=== PATIENT | female | born 1995 | race African-American/Black ===

== ENCOUNTER 2022-02-22 16:19 | Outpatient (RCR) | payer OTHER, SELFPAY ==
[2022-02-06 14:18] VITALS: BP 95/62; PULSE 81
[2022-02-10 07:44] VITALS: BP 99/57; PULSE 91
--- NOTE | 2022-02-10 08:45 | PC.NURSE ---
0814- Spoke with Dr. Norwood , US reviewed. orders for patient to keep NST in office on Tuesday and to come back to hospital next Tuesday for NST, BPP, JULIO and cord dopplers. Appt made for 0700 on Tue02/17/22
[2022-02-17 08:58] VITALS: BP 103/56; PULSE 86
--- NOTE | ~2022-02-22 | US_ITS ---
Corrected Report Order # associated See bolded text 02/18/2022 SLJ This report was recreated on 02/18/2022. Original report was signed by Jarred Alfonso M.D. 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 The interpreting radiologist was not present for the study. COMPARISON: None. FINDINGS: There is a single living fetus in vertex presentation. The placenta is right/anterior. heart rate is 137 beats per minute (bpm). The amniotic fluid index is 7.9 cm which is normal (normal range: 7.3 cm to 23.9 cm). Biophysical profile performed by the technologist: breathing (30 sec sustained breathing in 30 minutes): 2 out of 2 movement (3 gross body movements in 30 minutes): 2 out of 2 tone (one episode of mpojxoo-qngwmzlij-wehbxtu limb movement): 2 out of 2 Amniotic fluid pocket (2 cm): 2 out of 2 Total score: 8 out of 8 Umbilical artery pulsed Doppler demonstrates peak systolic to end-diastolic velocity ratio (S/D ratio) of 2.4 (5th percentile = 1.9, 95th percentile = 3.1). IMPRESSION: 1. Single living fetus in vertex presentation. 2. Biophysical profile 8 out of 8. 3. Normal amniotic fluid index. 4. Normal umbilical artery Doppler ratio. Reviewed, dictated and finalized at location A. CLIMBING INSTRUCTOR MTDD
--- NOTE | ~2022-02-22 | US_ITS ---
EXAMINATION: US OB limited w BPP, US umbilical doppler DATE: 02/10/2022 08:13 INDICATION: Abnormal variations on the nonstress test during third trimester . TECHNIQUE: Real-time pelvic ultrasound was performed. The interpreting radiologist was not present fo r the study. COMPARISON: None. FINDINGS: There is a single living fetus in vertex presentation. The placenta is fundal. heart rate is 1 48 beats per minute (bpm). Normal amniotic fluid index of 7.9 cm (5th%-95%: 7.5-24.4 cm at 37 weeks e stimated gestational age) Biophysical profile performed by the technologist: breathing (30 sec sustained breathing in 30 minutes): 2 out of 2 movement (3 gross body movements in 30 minutes): 2 out of 2 tone (one episode of nqacoks-dqlyntleu-fcrawoj limb movement): 2 out of 2 Amniotic fluid pocket (2 cm): 2 out of 2 Total score: 8 out of 8 The umbilical artery demonstrates a peak systolic and diastolic velocity ratio of 1.5-2.0 at the fetu s, 1.7-1.9 in the mid cord and 1.7 near the placenta (5th%-95%: 1.94-3.18 at 37 weeks). IMPRESSION: 1. Single living fetus in vertex presentation with heart rate of 148 bpm. 2. Biophysical profile 8 out of 8. 3. Normal amniotic fluid index of 7.9 cm. 4. Decreased umbilical arterial peak systolic to diastolic velocity ratios of 1.75 (5th%-95%: 1.94-3. 18 at 37 weeks). Reviewed, dictated and finalized at location A. LOPE STAMPING MACHINE OPERATOR IMPRESSION: 1. Single living fetus in vertex presentation with heart rate of 148 bpm. 2. Biophysical profile 8 out of 8. 3. Normal amniotic fluid index of 7.9 cm. 4. Decreased umbilical arterial peak systolic to diastolic velocity ratios of 1 .75 (5th%-95%: 1.94-3.18 at 37 weeks).
[2022-02-22 18:40] VITALS: BP 106/65
== END 2022-03-05 13:44 | disposition home or self-care (01) ==
LOC: ANHOBOP 16:19
PROVIDERS: Visit Provider Obstetrics & Gynecology Gynecology
DX: O98.513 Other viral diseases complicating pregnancy, third trimester (principal); U07.1 COVID-19; Z3A.36 36 weeks gestation of pregnancy; Z3A.37 37 weeks gestation of pregnancy; Z3A.38 38 weeks gestation of pregnancy
CPT/HCPCS: 59025; 76815; 76819; 76820

== ENCOUNTER 2022-02-25 07:51 | Inpatient (IN) | payer OTHER, SELFPAY ==
[2022-02-25] VITALS (89 sets, daily range): BP systolic 90–160; BP diastolic 51–110; PULSE 46–144; RESP 18; TEMP 36.6–37.1; O2SAT 94–100
[2022-02-25 08:57] LABS: Basophils Percent Auto 0.3 % (0.2-1.2); Eosinophils Percent Auto 0.5 % (0-4.4); Hematocrit 37.5 % (37.0-47.0); Hemoglobin 12.9 g/dL (12.0-15.0); Immature Granulocyte Absolute 0.02 K/mm3 (0.00-0.031); Immature Granulocyte Percent A 0.2 % (0-0.5); Lymphocytes Absolute Auto 1.53 K/mm3 (0.9-3.2); Lymphocytes Percent Auto 17.4 % (18.3-44.2); Mean Corpuscular HGB Conc 34.4 g/dl (32-36); Mean Corpuscular Volume 87.2 fl (80-100); Mean Platelet Volume 12.2 fl (7.4-10.4); Monocytes Absolute Auto 0.7 K/mm3 (0.1-0.6); Monocytes Percent Auto 7.7 % (2.6-8.5); Neutrophils Absolute Auto 6.5 K/mm3 (1.3-6.7); Neutrophils Percent Auto 73.9 % (45.5-73.1); Platelet Count Result 144 k/mm3 (150-375); Red Cell Distribution Width 15.8 % (11.5-14.5); White Blood Count 8.8 K/mm3 (4.5-10.0)
--- NOTE | 2022-02-25 09:01 | LDADM ---
This patient, Nathalie Byrne, was admitted to Labor/Delivery/Recovery 102 on 02/25/22 at 07:51. Plans for labor, pain management and were discussed with patient. Patient/family oriented to hospital policies and general routines including ID bracelet, bed and alarms, visiting hours, pain management, procedures, bathroom and other care routines, personal items, smoking policy, room service/diet and guest tray routines, security routines, and visiting hours. Patient/Family are encouraged to report perceived risks to care and to ask questions if they do not understand what they are told or what they should do. See OBIX for further documentation.
--- NOTE | 2022-02-25 11:01 | PM.OBPNLAB ---
Pain Control Date/time seen: 02/25/22 1040 Pain control: tolerating well Comments: sitting on labor ball at the bedside. Breathing through contractions. Pelvic Exam Comments: 5cm per RN's last exam Contractions Monitor mode: External Contraction pattern: Regular Contraction intensity: Moderate Status status: Category ll Comments: Occasional variables. Reassured by moderate variability. Assessment and Plan Assessment: active labor Comments: CNM to bedside. Nathalie is sitting on the labor ball at the bedside. Her partner is present and supportive. monitoring mostly category 1. Most recently category 2 due to variable deceleration, But remains reassuring. Discussed option of amniotomy for labor augmentation. Discussed risks and benefits as well as expectations. Patient declines at this time. Discussed comfort measures, positions, and her preferences. Anticipate vaginal .
--- NOTE | 2022-02-25 11:04 | WPDOBADMIT ---
Obstetrics - Admit Note Admission Note: record reviewed. No pertinent additions to the history and/or any subsequent changes in the physical findings that are not consistent with the expected course of the were found. Additions to the history and/or subsequent changes in the physical findings follow. None.
[2022-02-25] MEDS: LACTATED RINGERS 1,000 ML 125 ML IV CONT ×2 (14:46→15:24)
--- NOTE | 2022-02-25 14:48 | WPDANESEPP ---
Anes - Eval Pre Procedure Procedure: Labor Epidural Date/Time: 02/25/22 14:48 Surgeon: Cuco Preop Diagnosis: Labor Pain Pre Op Diagnosis: Labor Patient Data Age: 26 Gender: F Height: 1.6 m Weight: 77 kg Last Vital Signs Temp 37.1 C 02/25/22 13:30 Pulse 69 02/25/22 14:36 BP 122/67 02/25/22 14:36 O2 Del Method Room Air 02/25/22 08:59 Allergies Allergy/AdvReac Type Severity Reaction Status Date / Time seasonal Allergy Sneezing Uncoded 02/06/22 13:31 Home Medications Medication Instructions Recorded Confirmed Type prenat.vits,rosana,pjt-fwgl-ybmrj 1 tablet PO DAILY 02/06/22 02/17/22 History Laboratory Tests 02/25/22 02/25/22 02/25/22 08:47 08:47 08:47 WBC 8.8 K/mm3 K/mm3 (4.5-10.0) RBC 4.30 M/mm3 M/mm3 (4.2-5.4) Hgb 12.9 g/dL g/dL (12.0-15.0) Hct 37.5 % % (37.0-47.0) MCV 87.2 fl fl (80-100) MCH 30.0 pg pg (26-34) MCHC 34.4 g/dl g/dl (32-36) RDW 15.8 % H % (11.5-14.5) Plt Count 144 k/mm3 L k/mm3 (150-375) MPV 12.2 fl H fl (7.4-10.4) Immature Gran % (Auto) 0.2 % % (0-0.5) Neut % (Auto) 73.9 % H % (45.5-73.1) Lymph % (Auto) 17.4 % L % (18.3-44.2) [place] % (Auto) 7.7 % % (2.6-8.5) Eos % (Auto) 0.5 % % (0-4.4) Baso % (Auto) 0.3 % % (0.2-1.2) Lymph # (Auto) 1.53 K/mm3 K/mm3 (0.9-3.2) [place] # (Auto) 0.7 K/mm3 H K/mm3 (0.1-0.6) Eos # (Auto) 0.0 K/mm3 K/mm3 (0-0.3) Baso # (Auto) 0.0 K/mm3 K/mm3 (0.0-0.1) Abs Immat Gran (auto) 0.02 K/mm3 K/mm3 (0.00-0.031) Absolute Neuts (auto) 6.5 K/mm3 K/mm3 (1.3-6.7) Absolute Nucleated RBC 0.0 K/mm3 K/mm3 (0.0-0.012) Nucleated RBC % 0.0 % % (0.0-0.2) RPR Pending Blood Type O Positive Antibody Screen Negative : gestational age (ERIKA 03/02/22, ) Patient hx anesthesia problems: none Family hx anesthesia problems: none Results Review: All pre-operative results and documents have been reviewed as part of the pre-operative evaluation. [facility] Family History Family History Sibling Congenital abnormalities Social History Social History Smoking status: Never smoker Substance use: never Lack of Transportation: No Lack of Food: Sometimes True Current Housing: I Have Housing Concerned About Future Housing: No Difficulty Paying Gas/Electric Bills: No Difficulty Paying for Meds: No Currently Unemployed: No Education: Associate Degree Difficulty w/ Childcare or Family Care: No Spiritual care concerns: No Exam Day of Procedure 02/25/22 14:48 Patient weight: normal Heart: regular rate and rhythm Lungs: normal air movement Airway: Mallampati scale class II Neurological: alert and oriented
--- NOTE | 2022-02-25 15:09 | PM.OBPNLAB ---
Pain Control Date/time seen: 02/25/22 5941 Pain control: tolerating well Comments: Breathing through contractions. Desires epidural. Contractions Monitor mode: External Contraction frequency: 3 (1.5-5) Contraction duration: 60 (60-80) Contraction pattern: Regular Contraction intensity: Moderate Status status: Category ll Comments: Baseline 145. Reassured by moderate variability and accelerations. Assessment and Plan Assessment: active labor Plan: continuous present management Comments: Plan for epidural placement per pt request. Will discuss option of amniotomy afterwards. Anticipate vaginal .
--- NOTE | 2022-02-25 15:11 | P.PCNOB_ITS ---
OB - Delivery Note Procedure Delivery date: 02/25/22 Procedure: Induction method: None Delivery augmentation: Rupture of Membranes Delivery monitor: External FHT and External Uterine Route of delivery: Episiotomy description: None Laceration Description: Perineal - 2nd Degree Delivery repair: vicryl Specimen: No Quantitative Blood Loss (ml): 250 Anesthesia type: Epidural Disposition: Floor Narrative: Pt pushed well with contractions and brought the head to a crown. She delivered the head with 2-3 pushes. A loose nuchal cord was identified and there was fair restitution noted. With the next push there was easy delivery of the anterior shoulder followed by the posterior shoulder and then the remainder of the infant. The nuchal cord was reduced and the baby was placed skin to skin on the maternal abdomen. After about 30 seconds of life, the cord was doubly clamped and cut and the infant was taken to the warmer for further assessment/resuscitation. Cord blood and gasses were obtained. There was spontaneous delivery of the placenta. A 2nd degree, left vaginal/perineal laceration was repaired in the usual fashion. and mother skin to skin during the completion of the repair. All delivery counts correct. [place] Baby Date of : 02/25/22 Time of : 18:35 Weeks of gestation at delivery: 39 gender: Male Weight (pounds): 6 Weight (ounces): 0 presentation: vertex position: Left Occiput Anterior Placenta delivery description: Spontaneous Cord Vessel Description: 3 Vessels and Delayed Cord Clamping score one minute: 7 score five minutes: 8
--- NOTE | 2022-02-25 15:11 | PM.OBDSVD ---
DS: Admitting Diagnosis Discharge Date 02/27 Admitting Diagnosis 26 y.o. Labor at term Anemia Rubella Non-Immune Covid infection in DS: Discharge Diagnosis Discharge Diagnosis (1) Anemia: Code(s): D64.9 - Anemia, unspecified Status: Acute (2) Patient is a currently breast-feeding mother: Code(s): Z39.1 - Encounter for care and examination of lactating mother Status: Acute (3) Rubella non-immune status, delivered, current hospitalization: Code(s): O99.892 - Other specified diseases and conditions complicating childbirth; Z28.39 - Other underimmunization status Status: Acute (4) COVID-19 affecting in second trimester: Code(s): O98.512 - Other viral diseases complicating , second trimester; U07.1 - COVID-19 Status: Acute (5) (normal spontaneous vaginal delivery): Code(s): O80 - Encounter for full-term uncomplicated delivery Status: Acute OB - DS: Summary Hospital Course Hospital Course: Uncomplicated OB Procedures : Ultrasound OB Procedures Intrapartum: Spontaneous Vag Delivery OB Procedures: : Rubella lg (ordered) Peripartum Data Delivery Method: Natural Vaginal Laceration Description: Perineal - 2nd Degree and Vaginal - 2nd Degree Episiotomy description: None complications: none Status at Discharge Overall status at discharge: patient is progressing back to baseline Time Spent with Patient Time attestation: Total time spent providing and/or coordinating discharge services: DS: Data Data Completed and Pending Labs on day of discharge: Labs from last 24 hours 02/25/22 02/25/22 02/25/22 08:47 08:47 08:47 WBC 8.8 RBC 4.30 Hgb 12.9 Hct 37.5 MCV 87.2 MCH 30.0 MCHC 34.4 RDW 15.8 H Plt Count 144 L MPV 12.2 H Immature Gran % (Auto) 0.2 Neut % (Auto) 73.9 H Lymph % (Auto) 17.4 L [place] % (Auto) 7.7 Eos % (Auto) 0.5 Baso % (Auto) 0.3 Lymph # (Auto) 1.53 [place] # (Auto) 0.7 H Eos # (Auto) 0.0 Baso # (Auto) 0.0 Abs Immat Gran (auto) 0.02 Absolute Neuts (auto) 6.5 Absolute Nucleated RBC 0.0 Nucleated RBC % 0.0 RPR Pending Blood Type O Positive Antibody Screen Negative Discharge Plan Discharge Attending physician on discharge: Zoila Norwood Consulting providers: Chelly Montes ; Karla Borrego ; Sena Madison Discharging Clinician: Dave Spears Anticipated Discharge Date/Time: 02/27/22 19:24 Patient Disposition: Home, Self-Care Activity: may shower Diet: as tolerated Discharge Instructions: Education: Mom and Baby Guide Given to: Mother Follow-Up: Call your delivering provider's office for an appointment to be seen in: 6 Weeks Mom and baby should come to the [facility] for the follow-up appointment. Appointment Date/Time: Tuesday, March 01, 2022 at 9:00 a.m. What to expect at your follow-up visit: Blood Pressure Check Physical Assessment Call [phone] if you are unable to keep your appointment time. BREAST CARE: * Wear a snug supportive bra. * For engorgement discomfort: Breast Feeding: * Apply warm moist washcloths * Express milk as needed to relieve engorgement * Wear loose clothing Bottle Feeding: * May apply ice packs * For sore nipples: * Identify correct latch-on * Apply warm moist washcloths before and after nursing * Air dry nipples after nursing * May apply Lansinoh cream to nipples EPISIOTOMY/PERINEAL CARE: * Until bleeding stops, use your leann bottle after urinating * Change your pad frequently throughout the day * You may take sitz baths several times a day (fill your bathtub with warm water and soak for 20 minutes.) Do NOT bathe in the water * No tub baths until seen by your physician - You may shower AC
--- NOTE | 2022-02-25 15:59 | PM.OBPNLAB ---
Pain Control Date/time seen: 02/25/22 15:36 Pain control: epidural Pelvic Exam Dilation (cm): 7 Effacement (%): 90 station: 0 Contractions Monitor mode: External Contraction frequency: 3 (1.5-5) Contraction pattern: Regular Contraction intensity: Moderate Status status: Category ll Assessment and Plan Comments: Tracing with decelerations. Maternal BP stable. Discussed amniotomy with pt and her partner including risks and benefits. Pt agreable. AROM performed. Scant amount of clear fluid returned. Pt repositioned to right side and then left with peanut ball between knees. Early decelerations noted. Will continue to reposition frequently. Anticipate vaginal .
[2022-02-25] MEDS: WITCH HAZEL 40 PADS 1 PAD TOPICAL (21:59)
[2022-02-25] MEDS: BENZOCAINE 20% AER SPR (*SP) 56 GM CAN 1 SPRAY TOPICAL (21:59)
--- NOTE | 2022-02-25 22:05 | ADMGEN ---
This patient, Nathalie Byrne, was admitted to OB 2nd Floor Room 285-00. Patient/family oriented to hospital policies and general routines including ID bracelet, bed and alarms, visiting hours, pain management, procedures, bathroom and other care routines, personal items, smoking policy, room service/diet, and visiting hours. Information on how to activate the Rapid Response Team has been discussed. Patient/Family are encouraged to report perceived risks to care and to ask questions if they do not understand what they are told or what they should do.
[2022-02-25] MEDS: ACETAMINOPHEN 325 MG TABLET 650 MG PO (22:10)
[2022-02-26] MEDS: IBUPROFEN 600 MG TABLET PO ×2 (02:23→15:04)
[2022-02-26 03:45] VITALS: BP 96/51; PULSE 72; RESP 18; TEMP 36.9
[2022-02-26 05:31] LABS: Hematocrit 32.7 % (37.0-47.0); Hemoglobin 11.1 g/dL (12.0-15.0)
--- NOTE | 2022-02-26 07:28 | WPDANLDPN2 ---
Anes-Prog Note L&D Date/Time: 02/26/22 07:28 Neuro status: Neuro function grossly intact. Vital Signs: Last Vital Signs Temp 36.9 C 02/26/22 03:45 Pulse 72 02/26/22 03:45 Resp 18 02/26/22 03:45 BP 96/51 L 02/26/22 03:45 Pulse Ox 99 02/25/22 17:11 O2 Del Method Room Air 02/26/22 03:30 Pain score (VAS): 0 I/O: Intake & Output 02/25/22 02/25/22 02/26/22 15:59 23:59 07:59 Intake Total 1000 Output Total 100 Balance 1000 -100 Patient feedback: Patient satisfied with anesthetic care.
[2022-02-26] MEDS: DOCUSATE SODIUM 100 MG CAPSULE PO (07:37)
[2022-02-26] MEDS: MULTIVIT/MIN/PREN/FOL AC/IRON TABLET 1 TAB PO (07:37)
[2022-02-26] MEDS: ACETAMINOPHEN 325 MG TABLET 650 MG PO (07:38)
[2022-02-26 08:00] VITALS: PULSE 73; RESP 16; O2SAT 100
[2022-02-26 08:10] VITALS: BP 93/61; PULSE 73; RESP 16; TEMP 37; O2SAT 100
--- NOTE | 2022-02-26 10:59 | PM.OBPNVD ---
OB - PN: Subj Subjective Date/time seen: 02/26/22 10:59 Patient comments: no complaints and pain well controlled baby status: doing well OB - PN: Obj Data Labs 02/26/22 03:40 Labs: Laboratory Results - last 24 hr 02/26/22 03:40 Hgb 11.1 L Hct 32.7 L OB - PN A/P Plan day: 1 Plan: routine care Time Spent With Patient Time: Total time spent is greater than 50% in coordination of care (as documented) at patient's floor/unit and/or counseling patient: Exam : Bimanual exam- vagina & uterus: other (Uterus firm, nt @U)
[2022-02-26 11:48] VITALS: BP 90/56; PULSE 83; RESP 18; TEMP 37.2; O2SAT 99
[2022-02-26 14:45] LABS: Rapid Plasma Reagin Non-Reactive (NonReactive)
[2022-02-26 16:24] VITALS: BP 93/58; PULSE 92; RESP 16; TEMP 37; O2SAT 97
[2022-02-26 20:00] VITALS: BP 94/58; PULSE 84; RESP 18; TEMP 36.8
[2022-02-27 08:00] VITALS: BP 103/58; PULSE 73; RESP 16; TEMP 36.4; O2SAT 99
--- NOTE | 2022-02-27 09:27 | PC.NURSE ---
Patient viewed the discharge video Mother & Baby Care, The First Two Weeks . Patient was given the opportunity and encouraged to ask questions. Patient verbalized understanding of information shared and has been given the mother/baby guide for home reference.
[2022-02-27] MEDS: DOCUSATE SODIUM 100 MG CAPSULE PO (10:50)
[2022-02-27] MEDS: MEASLES,MUMPS,RUBELLA VACCINE 0.5 ML VIAL SUB-Q (10:51)
[2022-02-27] MEDS: MULTIVIT/MIN/PREN/FOL AC/IRON TABLET 1 TAB PO (10:51)
[2022-03-01 09:49] VITALS: BP 106/66; PULSE 80; RESP 20; TEMP 37.3; O2SAT 100
== END 2022-02-27 14:55 | disposition home or self-care (01) | DRG 807 ==
LOC: ANHLDR 19:24 → ANHOB2 02-27 11:28 → ANHLDR 03-02 10:09 → ANHOB2 03-02 10:09
PROVIDERS: Admitting Provider Obstetrics & Gynecology Gynecology; Referring Provider Advanced Practice Midwife; Visit Provider Student in an Organized Health Care Education/Training Program
DX: O69.81X0 Labor and delivery complicated by cord around neck, without compression, not applicable or unspecified (principal); Z37.0 Single live birth; O70.1 Second degree perineal laceration during delivery; O76 Abnormality in fetal heart rate and rhythm complicating labor and delivery; Z3A.39 39 weeks gestation of pregnancy; Z86.16 Personal history of COVID-19
CPT/HCPCS: 36415; 59025; 85014; 85018; 85025; 86592; 86850; 86900; 86901; 90710; A9270; J2795; J7120